=== PATIENT | female | born 1990 | race Caucasian/White ===

== ENCOUNTER → 2017-05-21 | Outpatient (CLI) | payer BC ==
--- NOTE | 2017-05-21 21:38 | REP ---
COMPLETE OBSTETRICAL ULTRASOUND: CLINICAL: Anatomical evaluation. FINDINGS: Ultrasound examination demonstrates single live intrauterine in variable presentation. Placenta is noted anteriorly and grade 0 without evidence for placenta previa or abruption. Amniotic fluid volume is normal. Cervix measures 3.6 cm in length and appears closed. No evidence for nuchal cord. Gestational age by LMP 19 weeks 0 days with estimated date of delivery 10/15/2017. Gestational age by current measurements 18 weeks 5 days with estimated date of delivery 10/17/2017. FHR 132 beats per minute. BPD 4.2 cm = 18 weeks 5 days HC 15.4 cm = 18 weeks 3 days AC 13.8 cm = 19 weeks 2 days FL 2.9 cm = 18 weeks 5 days HL 2.7 cm = 18 weeks 3 days HC/AC ratio 1.11. Estimated weight 266 grams (45th percentile). Anatomical assessment demonstrates normal cranium, choroid plexus, cavum, cerebellum/posterior fossa, facial features, lungs, four-chamber heart/ventricular outflow tracts, diaphragm, stomach, cord insertion/three-vessel cord, kidneys/bladder, and lower extremities. IMPRESSION: Single live intrauterine in variable presentation demonstrating appropriate interval growth. Limited evaluation of the spine and upper extremities. Remainder of the anatomical assessment is complete and normal. Signed by Guillaume Thorpe MD 05/22/2017 07:32 A
== END ==
LOC: M RAD 15:20
PROVIDERS: ATTEND Specialist
DX: Z34.82 Encounter for supervision of other normal pregnancy, second trimester (principal); Z3A.18 18 weeks gestation of pregnancy

== ENCOUNTER → 2017-06-29 | Outpatient (CLI) | payer BC ==
[2017-06-29 11:12] LABS: HEMATOCRIT 34.5 % (36.0-47.0); HEMOGLOBIN 11.8 g/dl (12.0-16.0); MEAN CORPUSCULAR HEMOGLOBIN 32.4 pg (27.0-33.0); MEAN CORPUSCULAR HGB CONC 34.2 g/dl (32.0-36.5); MEAN CORPUSCULAR VOLUME 94.8 fl (80.0-96.0); PLATELET COUNT, AUTOMATED 188 10^3/uL (150-450); RED BLOOD COUNT 3.64 10^6/uL (4.00-5.40); RED CELL DISTRIBUTION WIDTH 13.2 % (11.5-14.5); WHITE BLOOD COUNT 9.2 10^3/uL (4.0-10.0)
[2017-06-29 11:25] LABS: GLUCOSE CHALLENGE TEST 1 HOUR 74 MG/DL (LESS THAN 140)
[2017-06-29 14:43] LABS: HEPATITIS C VIRUS ABY INDEX 0.1 INDEX (<0.8)
== END ==
LOC: M RAD 11:00
DX: Z34.82 Encounter for supervision of other normal pregnancy, second trimester (principal)
CPT/HCPCS: 76816

== ENCOUNTER 2017-09-29 16:32 | Outpatient (CLI) | payer BC, OTHER | END 2017-09-29 18:28 | disposition home or self-care (01) | LOC: M LDO 16:32 | DX: O47.1 False labor at or after 37 completed weeks of gestation (principal); Z3A.37 37 weeks gestation of pregnancy | CPT/HCPCS: 59025 ==

== ENCOUNTER → 2019-02-10 | Outpatient (REF) | payer OTHER ==
[~2019-02-10] MED LIST: MAPA500T2 PO; MOTR200T44 PO; PRENTAB9 PO
[2019-02-12 15:01] LABS: HPV HYBRID CAPTURE II Negative (Negative)
== END ==
LOC: M LAB REF 13:22
PROVIDERS: ATTEND Advanced Practice Midwife
DX: Z12.4 Encounter for screening for malignant neoplasm of cervix (principal)
CPT/HCPCS: 87624; G0123

== ENCOUNTER → 2019-03-10 | Outpatient (REF) | payer OTHER ==
[2019-03-10 20:48] LABS: CHLAMYDIA DNA AMPLIFICATION NEGATIVE (NEGATIVE); GC DNA AMPLIFICATION NEGATIVE (NEGATIVE)
== END ==
LOC: M LAB REF 16:44
PROVIDERS: ATTEND Advanced Practice Midwife
DX: Z11.3 Encounter for screening for infections with a predominantly sexual mode of transmission (principal)

== ENCOUNTER → 2020-02-27 | Outpatient (REF) | payer OTHER | LOC: M LAB REF 12:24 | PROVIDERS: ATTEND Physician Assistant | DX: N39.0 Urinary tract infection, site not specified (principal) ==

== ENCOUNTER → 2021-04-09 | Outpatient (REF) | payer OTHER | LOC: M SFHCWAGY 19:23 | PROVIDERS: ATTEND Obstetrics & Gynecology | DX: Z12.4 Encounter for screening for malignant neoplasm of cervix (principal) ==

== ENCOUNTER → 2021-11-12 | Outpatient (CLI) | payer OTHER | LOC: M WHC 08:48 | PROVIDERS: ATTEND Advanced Practice Midwife | DX: Z34.92 Encounter for supervision of normal pregnancy, unspecified, second trimester (principal); Z53.9 Procedure and treatment not carried out, unspecified reason ==

== ENCOUNTER → 2021-12-19 | Outpatient (CLI) | payer OTHER | LOC: M WHC 11:26 | PROVIDERS: ATTEND Advanced Practice Midwife | DX: O32.1XX0 Maternal care for breech presentation, not applicable or unspecified (principal); Z3A.19 19 weeks gestation of pregnancy ==

== ENCOUNTER → 2022-01-07 | Outpatient (REF) | payer OTHER | LOC: M PLALAB 09:06 | PROVIDERS: ATTEND Obstetrics & Gynecology | DX: N89.8 Other specified noninflammatory disorders of vagina (principal); Z53.9 Procedure and treatment not carried out, unspecified reason ==

== ENCOUNTER → 2022-02-14 | Outpatient (CLI) | payer OTHER, MEDICAID ==
[2022-02-14 17:35] LABS: HEMATOCRIT 38.5 % (36.0-47.0); HEMOGLOBIN 12.9 g/dl (12.0-15.5); MEAN CORPUSCULAR HEMOGLOBIN 32.5 pg (27.0-33.0); MEAN CORPUSCULAR HGB CONC 33.5 g/dl (32.0-36.5); PLATELET COUNT, AUTOMATED 205 10^3/uL (150-450); RED BLOOD COUNT 3.97 10^6/uL (4.00-5.40); WHITE BLOOD COUNT 11.6 10^3/uL (4.0-10.0)
[2022-02-14 19:19] LABS: GC DNA AMPLIFICATION NEGATIVE (NEGATIVE)
== END ==
LOC: M PLALAB 13:07
PROVIDERS: ATTEND Obstetrics & Gynecology
DX: Z34.92 Encounter for supervision of normal pregnancy, unspecified, second trimester (principal); Z36.89 Encounter for other specified antenatal screening

== ENCOUNTER → 2022-04-09 | Outpatient (REF) | payer OTHER, MEDICAID | LOC: M SFHCWAGY 17:28 | PROVIDERS: ATTEND Specialist | DX: Z34.83 Encounter for supervision of other normal pregnancy, third trimester (principal) ==

== ENCOUNTER 2022-05-12 07:41 | Inpatient (IN) | payer OTHER, MEDICAID ==
[2022-05-12] VITALS (29 sets, daily range): BP systolic 89–119; BP diastolic 49–75
[~2022-05-12] VITALS: Ht 165.1 cm; Wt 73.5 kg
[2022-05-12] MEDS ORDERED: LACTATED RINGER'S 1000 ML IV STA (08:16)
[2022-05-12] MEDS ORDERED: LR 1,000 ML IV SCH ×2 (08:20→22:40)
[2022-05-12] MEDS ORDERED: CARBOPROST TROMETHAMINE 250 MCG/ML AMP IM PRN (08:20)
[2022-05-12] MEDS ORDERED: LIDOCAINE 1% MDV 20ML VIAL INFIL PRN (08:20)
[2022-05-12] MEDS ORDERED: OXYTOCIN INJ 10UNITS/ML 1ML VIAL IM PRN (08:20)
[2022-05-12] MEDS ORDERED: OXYTOCIN DRIP 30 UNITS in IV 1 EA IV PRN (08:20)
[2022-05-12] MEDS ORDERED: TRANEXAMIC ACID INJection 1,000 MG in NS 100 ML IV PRN (08:20)
[2022-05-12] MEDS ORDERED: METHYLERGONOVINE MALEATE 0.2 MG/ML VIAL (J2210) IM PRN (08:20)
[2022-05-12] MEDS: miSOPROStol 50MCG 1/2 TABLET PO SCH ×2 (09:33→13:46)
[2022-05-12 09:34] LABS: HEMATOCRIT 34.6 % (36.0-47.0); HEMOGLOBIN 12.2 g/dl (12.0-15.5); MEAN CORPUSCULAR HEMOGLOBIN 33.1 pg (27.0-33.0); MEAN CORPUSCULAR HGB CONC 35.3 g/dl (32.0-36.5); MEAN CORPUSCULAR VOLUME 93.8 fl (80.0-96.0); PLATELET COUNT, AUTOMATED 186 10^3/uL (150-450); RED BLOOD COUNT 3.69 10^6/uL (4.00-5.40); WHITE BLOOD COUNT 10.4 10^3/uL (4.0-10.0)
[2022-05-12] MEDS ORDERED: NALOXONE INJ 0.4MG/1ML VIAL IV PRN (19:55)
[2022-05-12] MEDS ORDERED: EPIDURAL/PCA KEYS XX PRN (19:55)
[2022-05-12] MEDS ORDERED: ONDANSETRON 4MG 2ML VIAL IV PRN (19:55)
[2022-05-12] MEDS ORDERED: diphenhydrAMINE 50MG/ML VIAL IV PRN (19:55)
[2022-05-12] MEDS ORDERED: LR 500 ML IV PRN (19:55)
[2022-05-12] MEDS: FENTANYL/ROPIVACAINE/NACL BAG 100 ML EPIDURAL SCH (20:55)
[2022-05-12] MEDS: ePHEDrine SULFATE 25 MG/5 ML(5MG/ML) SYRINGE IVP PRN (22:29)
[2022-05-12] MEDS ORDERED: OXYTOCIN DRIP 30 UNITS in IV 1 EA IV SCH (22:40)
[2022-05-13] VITALS (28 sets, daily range): BP systolic 84–129; BP diastolic 50–68
[2022-05-13] MEDS: FENTANYL/ROPIVACAINE/NACL BAG 100 ML EPIDURAL SCH (06:48)
[2022-05-13] MEDS: PRENATAL VITAMINS CHEWABLE TABLET PO SCH (09:00)
[2022-05-13] MEDS: ePHEDrine SULFATE 25 MG/5 ML(5MG/ML) SYRINGE IVP PRN (09:36)
[2022-05-13] MEDS ORDERED: DOCUSATE SODIUM 100MG CAPSULE PO PRN (10:50)
[2022-05-13] MEDS ORDERED: DIBUCAINE 1% OINTMENT 30GM TOP PRN (10:50)
[2022-05-13] MEDS ORDERED: ACETAMINOPHEN 500 MG TAB PO PRN (10:50)
[2022-05-13] MEDS ORDERED: METHYLERGONOVINE MALEATE 0.2 MG TAB PO PRN (10:50)
[2022-05-13] MEDS ORDERED: ACETAMINOPHEN TAB 650MG DOSE (2X325MG) PO PRN (10:50)
[2022-05-13] MEDS ORDERED: RHOGAM 300 MCG (1500 IU) INJ (J2790) IM SCH (10:50)
[2022-05-13] MEDS: IBUPROFEN 800 MG TAB PO PRN (14:18)
[2022-05-13] MEDS ORDERED: METHYLERGONOVINE MALEATE 0.2 MG/ML VIAL (J2210) IM ONE (16:35)
[2022-05-13] MEDS ORDERED: TRANEXAMIC ACID INJection 1,000 MG in D5W 100 ML IV ONE (16:35)
[2022-05-13] MEDS: PERCOCET 5MG/325MG TAB PO PRN ×3 (16:48→17:23)
[2022-05-13] MEDS ORDERED: TRANEXAMIC ACID 100 MG/ML 10ML VIAL ONE (18:19)
[2022-05-13] MEDS: IBUPROFEN 600MG TAB PO PRN (22:48)
[2022-05-14 06:00] VITALS: BP 102/59
[2022-05-14] MEDS: PRENATAL VITAMINS CHEWABLE TABLET PO SCH (09:49)
[2022-05-14] MEDS: IBUPROFEN 600MG TAB PO PRN ×2 (09:50→18:57)
[2022-05-14 18:00] VITALS: BP 106/66
[2022-05-15 05:37] VITALS: BP 94/66
[2022-05-15] MEDS ORDERED: MEASLES,MUMPS,RUBELLA VACCINE INJ (MMR-II) (90707) SC.IMMUN ONE (09:00)
[2022-05-15] MEDS: IBUPROFEN 800 MG TAB PO PRN (09:56)
[2022-05-15] MEDS: PRENATAL VITAMINS CHEWABLE TABLET PO SCH (09:56)
== END 2022-05-15 15:00 | disposition home or self-care (01) | DRG 560 ==
LOC: M LDI 07:41 → M OBS 05-13 13:05
PROVIDERS: ADMIT Advanced Practice Midwife; ATTEND Specialist
PROC: 3E0P7GC Introduction of Other Therapeutic Substance into Female Reproductive, Via Natural or Artificial Opening (ICD-10-PCS; 2022-05-12)
PROC: 10E0XZZ Delivery of Products of Conception, External Approach (ICD-10-PCS; principal; 2022-05-13)
PROC: 10907ZC Drainage of Amniotic Fluid, Therapeutic from Products of Conception, Via Natural or Artificial Opening (ICD-10-PCS; 2022-05-13)
DX: O48.0 Post-term pregnancy (principal); Z37.0 Single live birth; Z3A.40 40 weeks gestation of pregnancy

== ENCOUNTER 2023-11-26 19:07 | Emergency (ER) | payer BC, MEDICAID, OTHER ==
[~2023-11-26] VITALS: Ht 165.1 cm; Wt 58.3 kg
[2023-11-26] MEDS: LIDOCAINE 2% MDV 20ML VIAL SC ONE (20:50)
[2023-11-26] MEDS ORDERED: CEPH500C PO (21:32)
[2023-11-26] MEDS: CEPHALEXIN 500 MG CAP PO ONE (21:34)
[2023-11-26 21:45] VITALS: BP 113/82; TEMP 97.9; O2SAT 98
== END 2023-11-26 21:46 | disposition home or self-care (01) ==
LOC: M ED 19:07
DX: S60.451A Superficial foreign body of left index finger, initial encounter (principal); Y92.9 Unspecified place or not applicable; Y93.9 Activity, unspecified; Y99.0 Civilian activity done for income or pay; Z79.2 Long term (current) use of antibiotics

== ENCOUNTER → 2025-04-28 | Outpatient (REF) | payer OTHER ==
[~2025-04-28] MED LIST changes: +CEPH500C PO
[2025-05-02 14:15] LABS: HPV APTIMA Detected (Not Detected)
== END ==
LOC: M PLALAB 10:26
PROVIDERS: ATTEND Physician Assistant
DX: Z01.419 Encounter for gynecological examination (general) (routine) without abnormal findings (principal)

== ENCOUNTER → 2025-05-22 | Outpatient (CLI) | payer BC | LOC: M WHC 13:57 | PROVIDERS: ATTEND Physician Assistant | DX: R10.10 Upper abdominal pain, unspecified (principal) ==

== ENCOUNTER → 2025-06-02 | Outpatient (CLI) | payer BC ==
[~2025-06-02] MED LIST changes: +ISOVUE-370 76% 100 ML VIAL ONE
== END ==
LOC: M PLAIMG 08:30
PROVIDERS: ATTEND Physician Assistant
DX: K42.9 Umbilical hernia without obstruction or gangrene (principal)
CPT/HCPCS: 74177; Q9967